=== PATIENT | male | born 1965 | race African-American/Black ===

== ENCOUNTER 2023-10-03 19:07 | Emergency (ER) | payer OTHER ==
[~2023-10-03] VITALS: Ht 177.8 cm; Wt 104.3 kg
[2023-10-03 19:21] VITALS: BP_SYST 122; PULSE 88; RESP 16; TEMP 97.8; O2SAT 97
[2023-10-03] MEDS ORDERED: IBUP-1971 PO (21:34)
[2023-10-03] MEDS ORDERED: DICL20GE TP (21:34)
[2023-10-03] MEDS: KETOROLAC TROMETHAMINE 60 MG/2 ML VIAL IM ONE (21:36)
[2023-10-03 21:52] VITALS: BP_SYST 122; PULSE 88; RESP 16; TEMP 97.8; O2SAT 97
== END 2023-10-03 21:52 | disposition home or self-care (01) ==
LOC: SED 19:07
DX: S86.812A Strain of other muscle(s) and tendon(s) at lower leg level, left leg, initial encounter (principal); W17.2XXA Fall into hole, initial encounter; Y93.89 Activity, other specified; Y92.89 Other specified places as the place of occurrence of the external cause; Y99.8 Other external cause status
CPT/HCPCS: 99283; 29505; 73564; 96372; J1885